=== PATIENT | female | born 1970 | race Caucasian/White ===

== ENCOUNTER 2016-08-15 07:40 | Observation (INO) | payer BC ==
[~2016-08-15 07:40] MED LIST: Buffered Lidocaine 0.9% SYRIN* 5 ML/SYR SYRINGE INTRADERM ONE; Famotidine IV* 10 MG/ML 2 ML (20 mg) IV ONE
[2016-08-15] MEDS ORDERED: Famotidine IV* 10 MG/ML 2 ML (20 mg) ONE ×2 (08:09→11:05)
[2016-08-15] MEDS ORDERED: ceFOXitin 2 GM IVPREMIX* 2 GM/50 ML BAG ONE (08:10)
[2016-08-15] MEDS ORDERED: Midazolam* 1 MG/ML 5 ML VIAL (5 MG) ONE (08:18)
[2016-08-15] MEDS ORDERED: fentaNYL* 50 MCG/ML 2 ML VIAL (100 MCG VIAL) ONE (08:18)
[2016-08-15] MEDS ORDERED: Ondansetron INJ* 2 MG/ML VIAL ONE (08:19)
[2016-08-15] MEDS ORDERED: Lidocaine 2% PF * 5 ML VIAL ONE (08:19)
[2016-08-15] MEDS ORDERED: Succinylcholine* 20 MG/ML 10 ML VIAL ONE (08:19)
[2016-08-15] MEDS ORDERED: Propofol* 10 MG/ML 20 ML BTL IV PUSH ONE (08:19)
[2016-08-15] MEDS ORDERED: Dexamethasone IV* 4 MG/ML 1 ML (4 MG) ONE (08:19)
[2016-08-15] MEDS ORDERED: Ketorolac INJ* 30 MG/ML 1 ML VIAL ONE (08:19)
[2016-08-15] MEDS ORDERED: DiMENhydriNATE IV* 50 MG/ML VIAL ONE (08:19)
[2016-08-15] MEDS ORDERED: Atracurium* 10 MG/ML 10 ML VIAL ONE (09:40)
[2016-08-15] MEDS ORDERED: HYDROmorphone* 1 MG/ML 1 ML SYR ONE ×2 (10:26→11:48)
[2016-08-15] MEDS ORDERED: Buffered Lidocaine 0.9% SYRIN* 5 ML/SYR SYRINGE ONE (11:05)
[2016-08-15] MEDS ORDERED: Ibuprofen TAB* 600 MG PO PRN (11:33)
[2016-08-15] MEDS ORDERED: Albuterol HFA INHALER* 8 gm MDI INH PRN (11:37)
[2016-08-15] MEDS ORDERED: oxyCODONE/Acetamin 5/325 MG* TAB PO PRN (11:48)
[2016-08-15] MEDS ORDERED: DiMENhydriNATE IV* 50 MG/ML VIAL IV PUSH PRN (11:48)
[2016-08-15] MEDS ORDERED: oxyCODONE/Acetamin 5/325 MG* TAB ONE (11:48)
[2016-08-15] MEDS: HYDROmorphone* 1 MG/ML 1 ML SYR IV PRN ×5 (11:55→12:29)
[2016-08-15] MEDS: oxyCODONE/Acetamin 5/325 MG* TAB PO PRN ×2 (15:52→20:08)
[2016-08-16] MEDS: oxyCODONE/Acetamin 5/325 MG* TAB PO PRN ×3 (00:03→09:12)
[2016-08-16 06:56] LABS: Hematocrit 36 % (35-47); Hemoglobin 11.7 g/dl (12.0-16.0); Mean Corpuscular HGB Conc 32 g/dl (31-36); Mean Corpuscular Hemoglobin 27 pg (27-31); Mean Corpuscular Volume 85 fL (80-97); Mean Platelet Volume 8 um3 (7.4-10.4); Red Blood Count 4.26 10^6/ul (4.0-5.4); Red Cell Distribution Width 14 % (10.5-15)
[2016-08-16] MEDS ORDERED: Docusate CAP* 100 MG PO ONE (07:45)
[2016-08-16] MEDS ORDERED: Bisacodyl EC TAB* 5 MG PO ONE (07:46)
[2016-08-16] MEDS ORDERED: Bisacodyl SUPP* 10 MG SUPP PR ONE (07:47)
[2016-08-16] MEDS ORDERED: FLUoxetine CAP* 10 MG PO SCH (09:00)
[2016-08-16 09:19] VITALS: BP 117/69
--- NOTE | 2016-08-23 07:50 | OP ---
CC: Dr. Jose A Griffin* DATE OF OPERATION: 08/15/16 - ROOM #352 DATE OF : 66 SURGEON: Colt Romeo MD SALES ENGINEER ACCOUNT MANAGER: Dr. Griffin ANESTHESIA: General anesthetic with endotracheal intubation. PRE-OPERATIVE DIAGNOSIS: Chronic pelvic pain. POST-OPERATIVE DIAGNOSIS: Chronic pelvic pain, pending pathology. OPERATIVE PROCEDURE: Laparoscopic supracervical hysterectomy and bilateral salpingectomy with a GelPOINT single incision device. ESTIMATED BLOOD LOSS: Minimal, less than 5 cc. SPECIMENS SENT TO PATHOLOGY: Bilateral fallopian tubes and uterus. IV FLUIDS: She received 1200 cc of IV crystalloid fluid. URINE OUTPUT: Clear. FINDINGS: Laparoscopically the patient was noted to have a normal bowel, normal bladder, normal uterus with evidence of a prior tubal ligation. COMPLICATIONS: There were no complications during this procedure. DESCRIPTION OF PROCEDURE: The patient was taken to the operating room where she was identified. She was placed in the operating table where a general anesthetic with endotracheal intubation was obtained without difficulty. She was then placed in the dorsal lithotomy position, prepped and draped in normal sterile fashion. Attention was then brought on to the patient's perineum where the bladder was cauterized with the Oconnell catheter and drained of clear urine. A speculum was inserted in the patient's vagina. The cervix was identified, grasped with single tooth tenaculum and through the cervix a ClearView uterine manipulator was introduced. The balloon and manipulator was inflated with 4 cc of normal saline. At this point, the speculum was removed from the patient's vagina and the manipulator of the uterus left in place. Attention was then brought on to the patient's abdomen where a 2-cm infraumbilical skin incision was made with the knife and carried through to the underlying layer of fascia. The fascia was then grasped with Jones clamps, brought up to incision, incised with the knife sharply and then entry into the peritoneum was then confirmed using a Sachi clamp and S-retractors. The Jones clamps on the fascia were then replaced with 0 Polysorb sutures. Through this incision, a GelPOINT device was introduced. The trocar on the GelPOINT were also introduced. The patient's abdomen was then insufflated with CO2 gas. A 10 mm scope was introduced through the trocar and survey of the patient's intraabdominal and pelvic anatomy was noted as above. At this point, we proceeded with our procedure. We first did a bilateral salpingectomy. The fallopian tubes were grasped at the fimbriated ends with a blunt grasper, they were then transected with electrocautery using a LigaSure device. The both fallopian tubes were then removed through the trocars and sent to pathology. We then procedure with our hysterectomy. The round ligaments were transected bilaterally with LigaSure cut. A window was then made in the anterior leaf of the broad ligament. The broad ligament was then incised inferiorly with the LigaSure device using dissection and cautery. A bladder flap was then created and the bladder was then mobilized from the lower uterine segment. The uterine arteries were identified bilaterally. These were then grasped with the LigaSure bilaterally at the junction of the cervix and the uterus. They were then cauterized and transected. At this point, the uterus was noted to be blanching from the blood supply. The utero-ovarian ligament was grasped with the LigaSure and was cauterized and transected bilaterally. The posterior leaf of the broad ligament was also incised and a window was made using blunt and sharp dissection using a LigaSure device. Once the uterus was freed, a Supra Loop was introduced. A trocar was introduced 4 cm above the symphysis pubis under direct visualization. A Supra Loop was then wrapped around the uterus at the uterine cervical junction and the uterus was then transected from the cervix using cautery. The Supra Loop was set at 100 pure cut. Prior to transecting the uterus, the uterine manipulator was removed. Once the uterus was then transected, it was placed in an Endobag and brought up to the umbilical incision. The uterus was then morcellated within the bag and sent to Pathology. The bag was then removed from the patient's abdomen. We then proceeded to take a second look with laparoscope. The pedicles from the surgical site were noted to be completely hemostatic. We proceeded to irrigate the patient's pelvis with normal saline and the normal saline was then suctioned. Hemostasis was noted. The suprapubic trocars was removed under direct visualization. There was no bleeding noted there and at this point, we then proceeded to remove all the trocars and the GelPOINT device from the patient's umbilicus. The fascia at the umbilicus was closed using 0 Polysorb suture in a running fashion and the umbilical incision was then closed using 4-0 subcuticular stitch with good approximation as well as the suprapubic incision was closed with a 4-0 subcuticular stitch. The patient tolerated the procedure well. Sponge, lap, needle counts were correct x2. She was then transferred to recovery room area in stable condition. [id number]/[facility] #: [id number] MTDD
== END 2016-08-16 10:00 | disposition home or self-care (01) ==
LOC: OR 07:40 → SSU 12:50
PROVIDERS: ADMIT Obstetrics & Gynecology; ATTEND Obstetrics & Gynecology
PROC: 0UT74ZZ Resection of Bilateral Fallopian Tubes, Percutaneous Endoscopic Approach (ICD-10-PCS; 2016-08-15)
PROC: 0UT94ZZ Resection of Uterus, Percutaneous Endoscopic Approach (ICD-10-PCS; principal; 2016-08-15 09:00)
DX: R10.2 Pelvic and perineal pain (principal); G89.29 Other chronic pain
CPT/HCPCS: 36415; 85025; 88305; 88307; 96374; A9270-GY; G0378; J0330; J0694; J1100; J1170; J1240; J1885; J2250; J2405; J2704; J3010

== ENCOUNTER 2018-03-07 12:05 | Emergency (ER) | payer BC, OTHER ==
[2018-03-07 12:43] VITALS: BP 150/86
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
== END 2018-03-07 14:39 | disposition home or self-care (01) ==
LOC: UCCORT 12:05
DX: S20.212A Contusion of left front wall of thorax, initial encounter (principal); S40.012A Contusion of left shoulder, initial encounter; V48.0XXA Car driver injured in noncollision transport accident in nontraffic accident, initial encounter; Y92.9 Unspecified place or not applicable; F41.9 Anxiety disorder, unspecified
CPT/HCPCS: 71046; 99211; G0463

== ENCOUNTER 2018-06-17 08:33 | Emergency (ER) | payer BC, OTHER ==
[2018-06-17] MEDS ORDERED: Aspirin 81 mg CHEW TAB* 81 MG TAB.CHEW PO ONE (08:42)
--- NOTE | 2018-06-17 08:54 | ED ---
HPI Chest Pain - HPI Summary HPI Summary: A 48 y/o female accompanied by her presents to [facility] with a chief complaint of intermittent CP for the past month. She reports that her CP is left sided and rates her pain as a 4/10 in severity. She describes her pain as tightness and reports that she gets this pain when having a panic attack or walking up steps. She claims that her panic attacks are due to stress. After walking up steps she also experiences SOB and lightheadedness. Since her CP was becoming more frequent, happening every few days, she saw her PCP, Dr. Morillo, and had an EKG done which reportedly showed ST depression. She has an appointment with Dr. Guevara tomorrow. She has a FHx of cardiac disease and NM. She notes that the last few times she had her BP checked it was high, but she is not taking any medications. She is a non-smoker, but reports that her parents smoked in the household when she was younger. 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 Negative: Fever - Allergy/Home Medications Allergies/Adverse Reactions: Allergies Allergy/AdvReac Type Severity Reaction Status Date / Time SEAFOOD Allergy Hives, AND Uncoded 03/07/18 12:43 N/V PMH/Surg Hx/FS Hx/Imm Hx Endocrine/Hematology History: Denies: Hx Diabetes, Hx Thyroid Disease Cardiovascular History: Denies: Hx Hypertension, Hx Pacemaker/ICD Respiratory History: Reports: Hx Asthma - prn inhaler Denies: Hx Chronic Obstructive Pulmonary Disease (COPD) GI History: Denies: Hx Ulcer History: Reports: Other Problems/Disorders - irregular periods Denies: Hx Renal Disease Musculoskeletal History: Reports: Hx Arthritis - left shoulder Sensory History: Reports: Hx Contacts or Glasses - contacts, will wear glasses day of surgery Denies: Hx Hearing Aid Opthamlomology History: Reports: Hx Contacts or Glasses - contacts, will wear glasses day of surgery Psychiatric History: Reports: Hx Anxiety - ON MED Denies: Hx Panic Disorder - Surgical History Surgery Procedure, Year, and Place[place] [facility] [place] [facility] [place]. [place] [facility] [place] Hx Anesthesia Reactions: No - Immunization History Date of Tetanus Vaccine: up to date per pt Infectious Disease History: No Infectious Disease History: Denies: Hx Clostridium Difficile, Hx Hepatitis, Hx Human Immunodeficiency Virus (HIV), Hx of Known/Suspected MRSA, Hx Shingles, Hx Tuberculosis, Hx Known/ Suspected VRE, Hx Known/Suspected VRSA, History Other Infectious Disease, Traveled Outside the [place] in Last 30 Days - Family History Known Family History: Positive: Cardiac Disease, Hypertension, Renal Disease - Social History Alcohol Use: Weekly Alcohol Amount: 4-5 GLASSES WINE PER WEEK Substance Use Type: Reports: None Smoking Status (MU): Never Smoked Tobacco Review of Systems Negative: Fever Positive: Chest Pain Positive: Shortness Of Breath Neurological: Other - positive: lightheadedness All Other Systems Reviewed And Are Negative: Yes Physical Exam - Summary Physical Exam Summary: Appearance: Well appearing, no pain distress Skin: warm, dry, reflects adequate perfusion Head/face: normal Eyes: EOMI, JACQUI ENT: normal Neck: supple, non-tender Respiratory: CTA, breath sounds present Cardiovascular: RRR, pulses symmetrical Abdomen: non-tender, soft Musculoskeletal: normal, strength/ROM intact Neuro: normal, sensory motor intact, A&Ox3 Triage Information Reviewed: Yes Vital Signs On Initial Exam: Initial Vitals Temp Pulse Resp BP Pulse Ox 97.2 F 74 18 160/89 98 06/17/18 08:34 06/17/18 08:34 06/17/18 08:34 06/17/18 08:34 06/17/18 08:34 Vital Signs Reviewed: Yes Diagnostics - Vital Signs Vital Signs Temp Pulse Resp BP Pulse Ox 06/17/18 08:34 97.2 F 74 18 160/89 98 - Laboratory Result Diagrams: 06/17/18 08:58 06/17/18 08:58 Lab Statement: Any lab studies that have been ordered have been reviewed, and results considered in the medical decision making process. - EKG 08:40 Cardiac Rate: NL - 73 bpm EKG Rhythm: Sinus Rhythm Summary of EKG Findings: NSR at 73 bpm, no acute changes. Re-Evaluation - Re-Evaluation First Eval Re-Evaluation Time: 11:09 Change: Unchanged Comment: Discussed results Second Eval Re-Evaluation Time: 13:13 Change: Unchanged Comment: Discussed results and plan for discharge. Chest Pain Course/Dx - Course Course Of Treatment: A 48 y/o female accompanied by her presents to [facility] with a chief complaint of intermittent CP for the past month. The physical exam was unremarkable. EKG showed NSR at 73 bpm, no acute changes. In the ED course the patient was given 324 mg Aspirin PO. Bloodwork and chemistries obtained. Consulted with Dr. Guevara, shipping and receiving coordinator. A stress test was done and was negative. The patient will be discharged home and follow up with her PCP. The patient is agreeable with this plan. - Chest Pain Differential Diagnosis/HQI/PQRI: Acute NM, ACS, Angina, Chest Wall - Diagnoses Provider Diagnoses: Chest pain, atypical - Provider Notifications Discussed Care Of Patient With: Jamel Guevara Time Discussed With Above Provider: 11:04 Instructed by Provider To: MD Will See In ED Discharge - Sign-Out/Discharge Documenting (check all that apply): Patient Departure - DC Patient Received Moderate/Deep Sedation with Procedure: No - Discharge Plan Condition: Stable Disposition: HOME Patient Education Materials: Chest Pain (DC) Referrals: Tere Morillo MD [Primary Care Provider] - 3 Days Additional Instructions: Return to the ED if you experience any new or worsening symptoms. - Billing Disposition and Condition Condition: STABLE Disposition: Home - Attestation Statements Document Initiated by Clarence: Yes Documenting Scribe: Matthew Cordova Provider For Whom Clarence is Documenting (Include Credential): Tapan Lam MD Scribe Attestation: Matthew Mc scribed for Tapan Lam MD on 06/17/18 at 1506. Scribe Documentation Reviewed: Yes Provider Attestation: The documentation as recorded by the Matthew garay accurately reflects the service I personally performed and the decisions made by me, Tapan Lam MD Status of Scribe Document: Viewed Consult Consult: At 13:10 - Discussed case with Dr. Guevara, who reports that the stress test was negative.
--- OUTSIDE RECORDS SUMMARY | 2018-06-17 08:57 | XMS REPORT | Continuity of Care Document ---
:1970 External Reference #:[id number] Author Name Tere Morillo M.D. Address [address] [place] [address] Care Team Providers Name Role Phone Tere Morillo Care Team Information Photolithographer Unavailable Tere Morillo Primary Care Physician Unavailable Payers Date Identification Numbers Payment Provider Subscriber Effective: 2008 Policy Number: [id number] [facility] Clare Toby Up PayID: [id number] [address] [place] [address] Advance Directives Description No Information Available Problems Active Problems Provider Date Mild persistent asthma Tere Morillo M.D. Onset: 04/03/2016 Overweight Tere Morillo M.D. Onset: 03/19/2013 Contact dermatitis due to plants, except Nelson Stanton M.D. Onset: 2011 food Intrinsic asthma without status asthmaticus Lin Mueller M.D. Onset: Degenerative joint disease involving Lin Mueller M.D. Onset: 08/13/2011 multiple joints Shoulder joint pain Lin Mueller M.D. Onset: 08/13/2011 Premenstrual tension syndrome Lin Mueller M.D. Onset: 11/17/2010 Family History Date Family Member(s) Observation Comments General Coronary Artery Disease (CAD) MGF, PFG, PGM. General No fam hx lung, colon, breast CA.No DM. Father age 59. due to Kidney failure. Genetic.- immunotactoid Glomerulopathy. first [place] age 50. bypass surgery 56 yo. Mother Obesity Mother Osteoarthritis Brendon. First Son starting [employer]. athletic. rows crew. Second Son athlete. First Brother bells palsy Second Brother healthy Social History Type Date Description Comments Sex Unknown Education Highest level of education completed is a 2 master's degrees, Psych, Animal Science and education. 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 Tobacco Use Start: Unknown Never Smoked Cigarettes Smoking Status Reviewed: 07/19/17 Never Smoked Cigarettes ETOH Use Occasional 4-5 glasses/wk Tobacco Use Start: Unknown Patient has never smoked Exercise Type/Frequency Exercises regularly. Current Can bike, upper body exercises, down hill skiing. jazzercise 3 times a week. Seat Belt/Car Seat Always uses a seat belt Guns in Home There are not guns in the home Smoke Alarms There are smoke alarms in the house Allergies, Adverse Reactions, Alerts Active Allergies Reaction Severity Comments Date NKDA 03/08/2011 Seafood 04/03/2016 TUNA anaphylactic 04/03/2016 Medications Active Medications SIG Qnty Indications Ordering Provider Date Proair HFA 2 puffs every 4 25.5gm Tere Ruiz 04/03/2016 108(90Base) hours as needed Vinnie Morillo mcg/Act Aerosol Fluoxetine HCL Take 1 Capsule 90caps N94.3 Libertad Olguin 08/04/2010 10mg Daily Walker, BRANCH DIRECTOR Capsules Advair Diskus 1 puff twice a 3units Libertad Olguin 02/28/2009 day Walker, BRANCH DIRECTOR 100-50mcg/Dose Aerosol Multi Vitamin daily Unknown Nasacort Allergy 24HR spray 2 sprays in Unknown each nostril at 55mcg/Act Aerosol bedtime History Medications Nystatin 5 milliliters 250ml Brissa 06/06/2017 - swish and spit ALEXANDRO Matamoros 07/19/2017 229649Kdoc/ML orally four times Suspension a day Augmentin 1 by mouth twice a 20tabs Joey Lugo 04/01/2017 - 500-125mg day with meals Vinnie Handy 06/05/2017 Tablets Fexofenadine HCL 1 by mouth a day 30tabs Tere Ruiz 10/21/2014 - 60mg Vinnie Morillo 07/19/2017 Tablets Needle Biopsy lump under r arm. 782.2 Tere Ruiz 10/21/2014 - Dr. Bobo Morillo M.D. 10/24/2015 Prednisone 1 by mouth every 4tabs 493.10 Tere Ruiz 06/01/2014 - 50mg day x 4 days Vinnie Morillo 10/21/2014 Tablets Nebulizer Set Up And use as directed. 1units 493.10 Tere Ruiz 06/01/2014 - Tubing Vinnie Morillo 10/21/2014 Nebulizer - Hand use as directed 1unmariano 493.10 Tere Ruiz 06/01/2014 - Held Portable Vinnie Morillo 06/01/2014 Ipratropium 1 vial via 30units 493.10 Tere Ruiz 06/01/2014 - Ford/Albuterol nebulizer qid prn Vinnie Morillo 10/21/2014 Sulfate coughing/ asthma exacerbation. 0.5-2.5(3)mg/3ML Solution Naproxen 1 po bid with food 60tabs 724.2 Alicia Grijalva NP 08/20/2013 - 500mg 08/30/2013 Tablets Orphenadrine Citrate 1 po bid prn for 20tabs 724.2 Alicia Grijalva NP 2013 - ER spasm 08/30/2013 100mg Tablets ER 12HR Ventolin HFA 2 puffs qd-qid 1unmariano Ruiz 02/27/2013 - Vinnie Morillo 05/31/2014 108(90Base) mcg/Act Aerosol Ventolin HFA 2 puffs qd-qid 3units Tere Ruiz 01/27/2013 - Vinnie Morillo 04/03/2016 108(90Base) mcg/Act Aerosol Immobilizer Boot achilles tendon 727.67 Tere Ruiz 08/29/2012 - partial rupture. Vinnie Morillo 05/31/2014 Ibuprofen 1 -2 po-qid with 120tabs 727.67 Tere Ruiz 08/29/2012 - 400mg food in stomach Vinnie Morillo 05/31/2014 Tablets Betamethasone apply sparingly 30gm Nelson Stanton, 11/08/2011 - Dipropionate bid-tid to rash M.D. 08/29/2012 0.05% prn Cream Ibuprofen 1 -2 po-qid with 90tabs 726.10 Tere Ruiz 03/08/2011 - 400mg food in stomach Vinnie Morillo 11/08/2011 Tablets Physical Therapy evaluate and treat 726.10 Tere Ruiz 03/08/2011 - Left shoulder pain Vinnie Morillo 08/13/2011 Ankle Sprain physical therapy, Lin Mueller, 09/20/2010 - assess and treat M.DJeffrey 03/08/2011 Prednisone 4 po x 2 days, 20tabs Nelson Stanton, 04/27/2009 - 10mg then 3 po x 2 M.DJeffrey 08/29/2012 Tablets days, then 2 po x 2 days,then 1 po x 2 day Ventolin HFA 2 puffs qd-qid 3units Lin Mueller, 02/28/2009 - M.D. 01/27/2013 108(90Base) mcg/ac Aerosol Nasonex 2 sample Family Medicine 02/28/2009 - 50mcg/Act sprays/nostril/day [facility] 08/29/2012 Suspension [place] Percocet Unknown - 11/08/2011 Fish Oil Unknown - Capsules 08/29/2012 Vitamin D Unknown - 08/29/2012 Medrol (Tomer) as directed Unknown - 4mg 10/21/2014 Tablets Azithromycin 2 by mouth today Unknown - 250mg and 1 tab x 4 days 10/21/2014 Tablets Tussionex 1 teaspoon every Unknown - Pennkinetic Extended 12 hours as needed 10/21/2014 Release cough 10-8mg/5ML Liquid ER Immunizations CPT Code Status Date Vaccine Lot # [id number] Given 11/05/2017 Influenza Vac, [place], [place] [id number] Given 12/01/2016 Influenza Vac, Quadrivalent, Slit Virus, Im [id number] 57737 Given 01/10/2016 Influenza Vac, [place]riv[place] [address] Given 12/09/2014 Influenza Vac, Quadrivalent, Slit Virus, Im [id number] 67770 Given 12/04/2013 DO Not Use Split Influenza Virus Vaccine [id number] 68713 Given 01/03/2013 DO Not Use Split Influenza Virus Vaccine [id number] 06807 Given 02/04/2012 DO Not Use Split Influenza Virus Vaccine [id number] 01270 Given 08/13/2011 Tdap Tetanus, W Pertussis [id number] 61073 Given 08/13/2011 Hep A & Hep B Adult, adult dosage, for [id number] intramuscular use 44670 Given 02/05/2011 Hep A & Hep B Adult, adult dosage, for [id number] intramuscular use 15744 Given 11/17/2010 DO Not Use Split Influenza Virus Vaccine [id number] 70863 Given 08/04/2010 Hep A & Hep B Adult, adult dosage, for [id number] intramuscular use 85507 Given 02/14/2009 H1N1 Virus Vaccine 55847 Given 12/08/2008 DO Not Use Split Influenza Virus Vaccine 47402 Given 02/06/2006 Tetanus And Diptheria Adult Preservative Free >7Yrs Vital Signs Date Vital Result Comment 05/27/2018 4:03pm BP Systolic 140 mmHg BP Diastolic 78 mmHg Heart Rate 74 /min Respiratory Rate 16 /min Height 66 inches 5'6" Weight 169.00 lb BMI (Body Mass Index) 27.3 kg/m2 07/19/2017 12:57pm BP Systolic 114 mmHg BP Diastolic 70 mmHg Heart Rate 72 /min Body Temperature 97.9 F Respiratory Rate 16 /min Height 66 inches 5'6" Weight 163.00 lb BMI (Body Mass Index) 26.3 kg/m2 06/06/2017 12:57pm BP Systolic 124 mmHg BP Diastolic 60 mmHg Heart Rate 96 /min Body Temperature 97.7 F Height 66 inches 5'6" Weight 163.00 lb BMI (Body Mass Index) 26.3 kg/m2 03/22/2017 8:58am BP Systolic 128 mmHg BP Diastolic 78 mmHg Heart Rate 94 /min Body Temperature 98.1 F Respiratory Rate 16 /min O2 % BldC Oximetry 98 % Height 66 inches 5'6" Weight 161.00 lb BMI (Body Mass Index) 26.0 kg/m2 04/03/2016 12:59pm BP Systolic 120 mmHg BP Diastolic 70 mmHg Heart Rate 68 /min Body Temperature 97.9 F Respiratory Rate 16 /min Height 66 inches 5'6" Weight 165.00 lb BMI (Body Mass Index) 26.6 kg/m2 10/24/2015 10:48am BP Systolic 120 mmHg BP Diastolic 80 mmHg Heart Rate 76 /min Body Temperature 98.1 F Respiratory Rate 18 /min Height 66 inches 5'6" Weight 158.00 lb BMI (Body Mass Index) 25.5 kg/m2 10/21/2014 11:03am BP Systolic 120 mmHg BP Diastolic 72 mmHg Heart Rate 62 /min Body Temperature 97.8 F Respiratory Rate 18 /min Height 66 inches 5'6" Weight 166.25 lb BMI (Body Mass Index) 26.8 kg/m2 06/01/2014 2:40pm BP Systolic 106 mmHg BP Diastolic 60 mmHg Heart Rate 83 /min Body Temperature 97.3 F Respiratory Rate 14 /min O2 % BldC Oximetry 96 % Height 66.25 inches 5'6.25" measured Weight 171.38 lb BMI (Body Mass Index) 27.4 kg/m2 08/20/2013 9:29am BP Systolic 110 mmHg BP Diastolic 68 mmHg Heart Rate 68 /min Body Temperature 97.5 F Respiratory Rate 18 /min Height 66.25 inches 5'6.25" measured Weight 159.00 lb BMI (Body Mass Index) 25.5 kg/m2 03/19/2013 10:54am BP Systolic 110 mmHg BP Diastolic 70 mmHg Heart Rate 66 /min Body Temperature 97.7 F Respiratory Rate 18 /min Height 66.25 inches 5'6.25" measured Weight 163.00 lb BMI (Body Mass Index) 26.1 kg/m2 09/03/2012 9:00am BP Systolic 110 mmHg BP Diastolic 68 mmHg Heart Rate 66 /min Body Temperature 97.4 F Respiratory Rate 18 /min Height 66.25 inches 5'6.25" measured Weight 157.00 lb BMI (Body Mass Index) 25.1 kg/m2 08/29/2012 3:25pm BP Systolic 100 mmHg BP Diastolic 70 mmHg Heart Rate 66 /min Body Temperature 98.5 F Respiratory Rate 15 /min Height 66.25 inches 5'6.25" measured Weight 155.00 lb BMI (Body Mass Index) 24.8 kg/m2 11/08/2011 10:14am BP Systolic 100 mmHg BP Diastolic 60 mmHg Heart Rate 64 /min Body Temperature 97.2 F Respiratory Rate 18 /min Height 66.25 inches 5'6.25" measured Weight 158.00 lb BMI (Body Mass Index) 25.3 kg/m2 08/13/2011 9:26am BP Systolic 118 mmHg BP Diastolic 78 mmHg Heart Rate 72 /min Body Temperature 98.0 F Height 66.25 inches 5'6.25" measured Weight 151.00 lb BMI (Body Mass Index) 24.2 kg/m2 04/12/2011 4:10pm BP Systolic 110 mmHg BP Diastolic 70 mmHg Heart Rate 60 /min Body Temperature 98.0 F Height 66.25 inches 5'6.25" measured Weight 168.00 lb BMI (Body Mass Index) 26.9 kg/m2 03/08/2011 9:52am BP Systolic 100 mmHg BP Diastolic 68 mmHg Heart Rate 76 /min Height 66.25 inches 5'6.25" measured Weight 163.00 lb BMI (Body Mass Index) 26.1 kg/m2 11/17/2010 8:20am BP Systolic 102 mmHg BP Diastolic 58 mmHg Heart Rate 76 /min Height 66.25 inches 5'6.25" measured Weight 154.00 lb BMI (Body Mass Index) 24.7 kg/m2 09/18/2010 10:58am BP Systolic 102 mmHg BP Diastolic 70 mmHg Heart Rate 72 /min Respiratory Rate 14 /min Height 66.25 inches 5'6.25" measured Weight 156.00 lb BMI (Body Mass Index) 25.0 kg/m2 08/04/2010 10:23am BP Systolic 102 mmHg BP Diastolic 60 mmHg Heart Rate 72 /min Body Temperature 98.5 F Height 66.25 inches 5'6.25" measured Weight 152.00 lb BMI (Body Mass Index) 24.3 kg/m2 04/27/2009 11:11am BP Systolic 112 mmHg BP Diastolic 70 mmHg Heart Rate 76 /min Body Temperature 98.1 F Respiratory Rate 16 /min O2 % BldC Oximetry 99 % Height 67 inches 5'7" Weight 154.00 lb BMI (Body Mass Index) 24.1 kg/m2 02/28/2009 9:09am BP Systolic 104 mmHg BP Diastolic 72 mmHg Heart Rate 72 /min Height 67 inches 5'7" Weight 151.00 lb BMI (Body Mass Index) 23.6 kg/m2 Results Test Date Facility Test Result H/L Range Note Laboratory test 07/26/2017 [facility] TSH 1.27 mIU/L 0.50-6.00 finding CBC Electronic Fma 07/26/2017 [facility] WBC 7.1 x10^3/UL 4.0-10.0 RBC 4.93 x10^6/UL 3.93-6.00 HGB 14.1 g/dL 12.0-17.0 HCT 42 % 35-50 MCV 85.6 fL 80.0-95.0 MCH 28.6 pg 25.6-32.2 MCHC 33.4 g/dL 32.2-36.0 RDW-CV 13.4 % 11.6-14.4 PLT 337 x10^3/UL 163-400 MPV 9.1 fL Low 9.4-12.4 1 Swathi# 4.82 x10^3/UL 1.56-6.13 Lymph# 1.44 x10^3/UL 1.18-3.74 Esmeralda# 0.44 x10^3/UL 0.24-0.82 Eos # 0.3 x10^3/UL 0.0-0.5 Baso # 0.05 x10^3/UL 0.01-0.08 Swathi% 67.9 % 34.0-70.0 Lymph % 20.3 % 20.0-52.0 Esmeralda% 6.2 % 5.0-12.0 Eos% 4.6 % 0.7-7.0 Baso% 0.7 % 0.1-1.2 Comprehensive Metabolic Prof 07/26/2017 [facility] Sodium 142 mEq/L 134-149 Potassium 4.7 mEq/L 3.6-5.5 Chloride 105 mEq/L 94-112 Carbon Dioxide 26 mEq/L 21-32 Glucose 108 mg/dL High 70-105 2 BUN 11 mg/dL 6-26 Creatinine 0.9 mg/dL 0.6-1.4 BUN/Creat Ratio 12.2 CALC 8.0-36.0 Calcium 8.9 mg/dL 8.6-10.2 Total Protein 6.6 g/dL 6.4-8.3 Albumin 4.3 g/dL 3.8-5.5 Globulin 2.3 g/dL 2.0-4.8 A/G Ratio 1.9 CALC 0.6-2.3 Alk. Phosphatase 87 U/L 30-110 Alt (SGPT) 16 U/L 7-35 Ast (Sgot) 22 U/L 5-34 Total Bilirubin 0.8 mg/dL 0.2-1.3 GFR Non- >60 ml/min/1.73m^ >=60 GFR >60 ml/min/1.73m^ >=60 Lipid Profile 07/26/2017 [facility] Cholesterol 156 mg/dL 120-200 Triglycerides 47 mg/dL 30-200 HDL Cholesterol 64 mg/dL 30-85 LDL (Calculated) 83 CALC 0-129 VLDL Cholesterol 9 mg/dL 0-50 HDL Risk Factor 2.4 CALC 0.0-4.4 Influenza A&B-fma 03/22/2017 [facility] Medicine Influenza A NEG (607)- - Influenza B NEG Laboratory test finding 08/13/2016 [facility] HCG < 0.60 mIU/mL N 3 CBC Auto Diff 08/13/2016 [facility] White Blood Count 8.7 10^3/uL N 3.5-10.8 Red Blood Count 4.81 10^6/uL N 4.0-5.4 Hemoglobin 13.2 g/dL N 12.0-16.0 Hematocrit 41 % N 35-47 Mean Corpuscular Volume 85 fL N 80-97 Mean Corpuscular Hemoglobin 27 pg N 27-31 Mean Corpuscular HGB Conc 32 g/dL N 31-36 Red Cell Distribution Width 14 % N 10.5-15 Platelet Count 322 10^3/uL N 150-450 Mean Platelet Volume 8 um3 N 7.4-10.4 Abs Neutrophils 5.9 10^3/uL N 1.5-7.7 Abs Lymphocytes 2.0 10^3/uL N 1.0-4.8 Abs Monocytes 0.4 10^3/uL N 0-0.8 Abs Eosinophils 0.2 10^3/uL N 0-0.6 Abs Basophils 0.1 10^3/uL N 0-0.2 Abs Nucleated RBC 0.01 10^3/uL N Granulocyte % 68.3 % N 38-83 Lymphocyte % 23.2 % Low 25-47 Monocyte % 4.8 % N 1-9 Eosinophil % 2.8 % N 0-6 Basophil % 0.9 % N 0-2 Nucleated Red Blood Cells % 0.1 N Abo/RH Type 08/13/2016 [facility] Patient Blood Type O Positive N Laboratory test finding 01/31/2016 [facility] Lactic Acid 0.7 mmol/L N 0.5-2.0 4 Urinalysis Profile 01/31/2016 [facility] Urine Color Yellow N Urine Appearance Clear N Urine Specific [place] > 1.060 High 1.010-1.030 Urine pH 7.0 N 5-9 Urine Urobilinogen Negative N Negative Urine Ketones Negative N Negative Urine Protein Negative N Negative Urine Leukocytes Negative N Negative Urine Blood Negative N Negative Urine Nitrite Negative N Negative Urine Bilirubin Negative N Negative Urine Glucose Negative N Negative Comp Metabolic Panel 01/31/2016 [facility] Sodium 135 mmol/L N 133-145 Potassium 3.9 mmol/L N 3.5-5.0 Chloride 103 mmol/L N 101-111 Co2 Carbon Dioxide 26 mmol/L N 22-32 Anion Gap 6 mmol/L N 2-11 Glucose 110 mg/dL High 70-100 Blood Urea Nitrogen 10 mg/dL N 6-24 Creatinine 1.02 mg/dL High 0.51-0.95 BUN/Creatinine Ratio 9.8 N 8-20 Calcium 9.4 mg/dL N 8.6-10.3 Total Protein 7.6 g/dL N 6.4-8.9 Albumin 4.4 g/dL N 3.2-5.2 Globulin 3.2 g/dL N 2-4 Albumin/Globulin Ratio 1.4 N 1-3 Total Bilirubin 0.80 mg/dL N 0.2-1.0 Alkaline Phosphatase 95 U/L N 34-104 Alt 15 U/L N 7-52 Ast 21 U/L N 13-39 Egfr Non- 58.1 N >60 Egfr 74.7 N >60 5 Laboratory test finding 01/31/2016 [facility] Magnesium 2.1 mg/dL N 1.9-2.7 Lipase 13 U/L N 11.0-82.0 C Reactive Protein 2.91 mg/L N < 5.00 6 Lactic Acid 1.4 mmol/L N 0.5-2.0 7 CBC Auto Diff 01/31/2016 [facility] White Blood Count 11.2 10^3/uL High 3.5- 10.8 Red Blood Count 5.08 10^6/uL N 4.0-5.4 Hemoglobin 14.3 g/dL N 12.0-16.0 Hematocrit 44 % N 35-47 Mean Corpuscular Volume 86 fL N 80-97 Mean Corpuscular Hemoglobin 28 pg N 27-31 Mean Corpuscular HGB Conc 33 g/dL N 31-36 Red Cell Distribution Width 14 % N 10.5-15 Platelet Count 391 10^3/uL N 150-450 Mean Platelet Volume 8 um3 N 7.4-10.4 Abs Neutrophils 7.3 10^3/uL N 1.5-7.7 Abs Lymphocytes 2.7 10^3/uL N 1.0-4.8 Abs Monocytes 0.6 10^3/uL N 0-0.8 Abs Eosinophils 0.5 10^3/uL N 0-0.6 Abs Basophils 0.1 10^3/uL N 0-0.2 Abs Nucleated RBC 0.01 10^3/uL N Granulocyte % 65.0 % N 38-83 Lymphocyte % 23.8 % Low 25-47 Monocyte % 5.5 % N 1-9 Eosinophil % 4.8 % N 0-6 Basophil % 0.9 % N 0-2 Nucleated Red Blood Cells % 0.1 N CBC Auto Diff 10/16/2015 [facility] White Blood Count 9.3 10^3/uL N 3.5-10.8 Red Blood Count 4.65 10^6/uL N 4.0-5.4 Hemoglobin 13.2 g/dL N 12.0-16.0 Hematocrit 40 % N 35-47 Mean Corpuscular Volume 86 fL N 80-97 Mean Corpuscular Hemoglobin 28 pg N 27-31 Mean Corpuscular HGB Conc 33 g/dL N 31-36 Red Cell Distribution Width 13 % N 10.5-15 Platelet Count 328 10^3/uL N 150-450 Mean Platelet Volume 8 um3 N 7.4-10.4 Abs Neutrophils 6.5 10^3/uL N 1.5-7.7 Abs Lymphocytes 1.9 10^3/uL N 1.0-4.8 Abs Monocytes 0.3 10^3/uL N 0-0.8 Abs Eosinophils 0.4 10^3/uL N 0-0.6 Abs Basophils 0.2 10^3/uL N 0-0.2 Abs Nucleated RBC 0 10^3/uL N Granulocyte % 70.3 % N 38-83 Lymphocyte % 20.1 % Low 25-47 Monocyte % 3.4 % N 1-9 Eosinophil % 3.9 % N 0-6 Basophil % 2.3 % High 0-2 Nucleated Red Blood Cells % 0 N Laboratory test finding 10/16/2015 [facility] Lipase 15 U/L N 11.0-82.0 C Reactive Protein 2.97 mg/L N < 5.00 8 HCG < 0.60 mIU/mL N 9 Urinalysis Profile 10/16/2015 [facility] Urine Color Yellow N Urine Appearance Clear N Urine Specific [place] 1.012 N 1.010-1.030 Urine pH 8.0 N 5-9 Urine Urobilinogen Negative N Negative Urine Ketones Negative N Negative Urine Protein Negative N Negative Urine Leukocytes Negative N Negative Urine Blood Negative N Negative Urine Nitrite Negative N Negative Urine Bilirubin Negative N Negative Urine Glucose Negative N Negative Inr/Protime 10/16/2015 [facility] Inr 1.09 N 0.89-1.11 Comp Metabolic Panel 10/16/2015 [facility] Sodium 136 mmol/L N 133-145 Potassium 3.7 mmol/L N 3.5-5.0 Chloride 104 mmol/L N 101-111 Co2 Carbon Dioxide 25 mmol/L N 22-32 Anion Gap 7 mmol/L N 2-11 Glucose 109 mg/dL High 70-100 Blood Urea Nitrogen 15 mg/dL N 6-24 Creatinine 0.94 mg/dL N 0.51-0.95 BUN/Creatinine Ratio 16.0 N 8-20 Calcium 8.8 mg/dL N 8.6-10.3 Total Protein 6.6 g/dL N 6.4-8.9 Albumin 3.7 g/dL N 3.2-5.2 Globulin 2.9 g/dL N 2-4 Albumin/Globulin Ratio 1.3 N 1-3 Total Bilirubin 0.60 mg/dL N 0.2-1.0 Alkaline Phosphatase 88 U/L N 34-104 Alt 13 U/L N 7-52 Ast 19 U/L N 13-39 Egfr Non- 63.8 N >60 Egfr 82.1 N >60 10 Laboratory test finding 10/16/2015 [facility] Partial Thrombo Time 28.5 seconds N 26.0-36.3 PTT Lactic Acid 1.4 mmol/L N 0.5-2.0 11 Laboratory test 11/11/2014 [facility] Thyroxine (T4) 0.98 ng/dL 0.82-1.77 finding [address] [facility], [address] [place] [address] (607)- - TSH 1.590 uIU/mL 0.450-4.500 Vitamin D, 25-Hydroxy 38.6 ng/mL 30.0-100.0 12 Lipid Panel 11/11/2014 [facility] Cholesterol, Total 153 mg/dL [phone] [place] [address] (607)- - Triglycerides 71 mg/dL 0-149 HDL Cholesterol 55 mg/dL >39 13 VLDL Cholesterol Mike 14 mg/dL 5-40 LDL Cholesterol Calc 84 mg/dL 0-99 Comment: DNR Comp. Metabolic 11/11/2014 [facility] Glucose, Serum 94 mg/dL 65-99 Panel (14) [address] [place] [address] (606)- - BUN 13 mg/dL 6-24 Creatinine, Serum 0.93 mg/dL 0.57-1.00 eGFR If NonAfricn Am 74 mL/min/1.73 >59 eGFR If Africn Am 85 mL/min/1.73 >59 BUN/Creatinine Ratio 14 9-23 Sodium, Serum 140 mmol/L 134-144 Potassium, Serum 4.5 mmol/L 3.5-5.2 Chloride, Serum 102 mmol/L 97-108 Carbon Dioxide, Total 26 mmol/L 18-29 Calcium, Serum 9.0 mg/dL 8.7-10.2 Protein, Total, Serum 6.5 g/dL 6.0-8.5 Albumin, Serum 3.9 g/dL 3.5-5.5 Globulin, Total 2.6 g/dL 1.5-4.5 A/G Ratio 1.5 1.1-2.5 Bilirubin, Total 0.5 mg/dL 0.0-1.2 Alkaline Phosphatase, S 92 IU/L 39-117 Ast (Sgot) 23 IU/L 0-40 Alt (SGPT) 13 IU/L 0-32 CBC With 11/11/2014 [facility] WBC 7.3 x10E3/uL 3.4-10.8 Differential/Platelet [address] [place] [address] (607)- - RBC 4.66 x10E6/uL 3.77-5.28 Hemoglobin 13.6 g/dL 11.1-15.9 Hematocrit 40.7 % 34.0-46.6 MCV 87 fL 79-97 MCH 29.2 pg 26.6-33.0 MCHC 33.4 g/dL 31.5-35.7 RDW 13.5 % 12.3-15.4 Platelets 333 x10E3/uL 150-379 Neutrophils 67 % Lymphs 23 % Monocytes 5 % Eos 5 % Basos 0 % Immature Cells DNR Neutrophils (Absolute) 4.9 x10E3/uL 1.4-7.0 Lymphs (Absolute) 1.7 x10E3/uL 0.7-3.1 Monocytes(Absolute) 0.4 x10E3/uL 0.1-0.9 Eos (Absolute) 0.3 x10E3/uL 0.0-0.4 Baso (Absolute) 0.0 x10E3/uL 0.0-0.2 Immature Granulocytes 0 % Immature Grans (Abs) 0.0 x10E3/uL 0.0-0.1 NRBC DNR Hematology Comments: DNR Laboratory test 10/26/2014 [facility] Non-Supervisor Type Photography Interface SEE RESULT 14 finding Order BELOW Ua - Non Micro 10/21/2014 [facility] Appearance CLEAR (Fma) (607)- - Color YELLOW Glucose, Urine (Fma/CMC/CTX) NEG Bilirubin NEG Ketones NEG SP Grav 1.010 Blood NEG PH 6.0 Protein NEG Urobil 0.2 Nitrite NEG Leukocytes (a/[facility]) NEG Basic Metabolic Panel 03/01/2014 [facility] Sodium 137 mmol/L N 133-145 15 Potassium 4.3 mmol/L N 3.5-5.0 Chloride 105 mmol/L N 101-111 Co2 Carbon Dioxide 28 mmol/L N 22-32 Anion Gap 4 mmol/L N 2-11 Glucose 87 mg/dL N 70-100 Blood Urea Nitrogen 11 mg/dL N 6-24 Creatinine 0.80 mg/dL N 0.51-0.95 BUN/Creatinine Ratio 13.8 N 8-20 Calcium 9.0 mg/dL N 8.6-10.3 Egfr Non- 77.2 N >60 Egfr 99.3 N >60 16 Total Protein 24HR Urine 03/01/2014 [facility] Urine Random Total Protein < 6 mg/ dL N 17 Urine Total Protein/24HR TNP mg/24Hr N 0-165 18 Urine Collection Time 24 N Urine Total Volume 2100 mL N Creatinine Clearance 03/01/2014 [facility] Urine Random Creatinine 77.29 mg/dL N Creatinine 0.81 mg/dL N 0.51-0.95 Creatinine Clearance 139 mL/min High 88-128 Urine Collection Time 24 N Urine Total Volume 2100 mL N Urinalysis Profile 12/14/2013 [facility] Urine Color Red N Urine Appearance Cloudy N Urine Specific [place] 1.012 N 1.010-1.030 Urine pH (SEE NOTE) N 5-9 19 Urine Urobilinogen (SEE NOTE) N Negative 20 Urine Ketones (SEE NOTE) N Negative 21 Urine Protein (SEE NOTE) N Negative 22 Urine Leukocytes (SEE NOTE) N Negative 23 Urine Blood (SEE NOTE) N Negative 24 * (SEE NOTE) N Negative 25 Urine Nitrite (SEE NOTE) N Negative 26 Urine Bilirubin (SEE NOTE) N Negative 27 Urine Glucose (SEE NOTE) N Negative 28 Urine White Blood Cell Trace(0-5/hpf) N Absent Urine Red Blood Cell 3+(>10/hpf) Abnormal Absent Urine Bacteria Absent N Absent Ua - Micro (Fma) 03/19/2013 [facility] Medicine Appearance clear (607)- - Color yellow Glucose - Bilirubin - Ketones - SP Grav 1.020 Blood small # PH 6.0 Protein - Urobil 0.2 Nitrite - Leukocytes (Fma/CMC/[facility]) - Hyaline - /Lpf Granular - /Lpf WBC (Fma,[facility]) 0-1 RBC 2-3 Mucus - /Lpf Epith rare /Lpf Bacteria rare /Hpf Amorphous - /Lpf Crystals, Fluid (Fma/CMC/CTX) - Basic Metabolic Panel 03/19/2013 [facility] Glucose 98 mg/dL 70-100 [address] [place] [address] [phone] BUN 10 mg/dL 4-18 Creatinine, Serum 0.96 mg/dL 0.50-1.10 Sodium 140 mmol/L 136-146 Potassium 4.5 mmol/L 3.5-5.3 Chloride 106 mmol/L 98-110 Carbon Dioxide 29 mmol/L 20-32 Calcium 9.3 mg/dL 8.4-10.4 Egfr (Calculated) 03/19/2013 [facility] Estimated GFR (CALCULATED) [address] [place] [address] [phone] Egfr >60 29 Egfr, -[place] >60 30 [place] Shellfish 04/12/2011 [facility] Class Description SEE NOTE 31 Panel [address] [place] [phone] [id number] Crab <0.08 kU/L Class 0 [id number] Shrimp <0.08 kU/L Class 0 [id number] Mussel <0.08 kU/L Class 0 [id number] Lobster <0.08 kU/L Class 0 [id number] Clam <0.08 kU/L Class 0 [id number] Oyster 0.23 kU/L Abnormal Class II Basic Metabolic Panel 08/04/2010 [facility] Glucose 97 mg/dL 70-100 32 [address] [place] [address] [phone] BUN 13 mg/dL 4-18 Creatinine, Serum 0.94 mg/dL 0.50-1.10 Sodium 139 mmol/L 136-146 Potassium 4.2 mmol/L 3.5-5.3 Chloride 104 mmol/L 98-110 Carbon Dioxide 31 mmol/L 20-32 Calcium 9.3 mg/dL 8.4-10.4 Egfr (Calculated) 08/04/2010 [facility] Estimated GFR (CALCULATED) [address] [place] [address] [phone] Egfr >60 33 Egfr, -Guinean >60 34 Ua - Micro (Fma) 08/04/2010 Family [facility] Appearance clear (607)- - Color yellow Glucose - Bilirubin - Ketones - SP Grav 1.015 Blood trace # PH 7.5 Protein - Urobil 0.2 Nitrite - Hyaline - /Lpf Granular - /Lpf WBC (Fma,[facility]) 0-1 RBC 1-4 Mucus - /Lpf Epith occ /Lpf Bacteria trace /Hpf Amorphous - /Lpf Crystals, Fluid (Fma/CMC/CTX) - GFR Calculated 02/28/2009 [facility] GFR (Calculated) >60 35, 36 [address] [place] [address] [phone] Basic Metabolic 02/28/2009 [facility] Glucose 97 mg/dL 70-10 Panel [address] [address] [phone] BUN 15 mg/dL 4-18 Creatinine, Serum 0.87 mg/dL 0.50-1.10 Sodium 139 mmol/L 136-146 Potassium 4.7 mmol/L 3.5-5.3 Chloride 106 mmol/L 98-110 Carbon Dioxide 27 mmol/L 20-32 Calcium 9.0 mg/dL 8.4-10.4 Lipid Panel 02/28/2009 [facility] Cholesterol, Total 167 mg/dL <200 [address] [place] [address] [phone] Triglycerides 56 mg/dL <150 HDL Cholesterol 64 mg/dL High 40-60 Chol/HDL Cholesterol 2.6 37 LDL Cholesterol, Calc. 92 mg/dL 38 LDL/HDL Cholesterol 1.4 39 Vitamin D 25 02/28/2009 [facility] Vitamin D, 36.3 ng/mL 32.0-100.0 40 Hydroxy 28 [facility] 25[place] [address] [phone] RESULTS VERIFIED BY REPEAT ANALYSIS 2 UNABLE TO PERFORM TEST DUE TO INADEQUATE SPECIMEN 3 <5.0 Negative 5.0 - 25.0 Indeterminate (Repeat testing recommended after 72 hours) >25.0 Positive Perimenopausal women can display HCG levels of up to 20 mIU/mL 4 [facility] Severe Sepsis and Septic Shock Management Bundle Measure requires all lactic acids initially measuring >2.0 mmol/L be repeated. 5 Because ethnic data is not always readily available, this report includes an eGFR for both -Americans and non- Americans. The National Kidney Disease Education Program (NKDEP) does not endorse the use of the MDRD equation for patients that are not between the ages of 18 and 70, are , have extremes of body size, muscle mass, or nutritional status, or are non- or non-. According to the National Kidney Foundation, irrespective of diagnosis, the stage of the disease is based on the level of kidney function: Stage Description GFR(mL/min/1.73 m(2)) 1 Kidney damage with normal or decreased GFR 90 2 Kidney damage with mild decrease in GFR 60-89 3 Moderate decrease in GFR 30-59 4 Severe decrease in GFR 15-29 5 Kidney failure <15 (or dialysis) 6 Acute inflammation: >10.00 7 [facility] Severe Sepsis and Septic Shock Management Bundle Measure requires all lactic acids initially measuring >2.0 mmol/L be repeated. 8 Acute inflammation: >10.00 9 <5.0 Negative 5.0 - 25.0 Indeterminate (Repeat testing recommended after 72 hours) >25.0 Positive Perimenopausal women can display HCG levels of up to 20 mIU/mL 10 Because ethnic data is not always readily available, this report includes an eGFR for both -Americans and non- Americans. The National Kidney Disease Education Program (NKDEP) does not endorse the use of the MDRD equation for patients that are not between the ages of 18 and 70, are , have extremes of body size, muscle mass, or nutritional status, or are non- or non-. According to the National Kidney Foundation, irrespective of diagnosis, the stage of the disease is based on the level of kidney function: Stage Description GFR(mL/min/1.73 m(2)) 1 Kidney damage with normal or decreased GFR 90 2 Kidney damage with mild decrease in GFR 60-89 3 Moderate decrease in GFR 30-59 4 Severe decrease in GFR 15-29 5 Kidney failure <15 (or dialysis) 11 [facility] Severe Sepsis and Septic Shock Management Bundle Measure requires all lactic acids initially measuring >2.0 mmol/L be repeated. 12 Vitamin D deficiency has been defined by the [place] of [employer] and an Endocrine Society practice guideline as a level of serum 25-OH vitamin D less than 20 ng/mL (1,2). The Endocrine Society went on to further define vitamin D insufficiency as a level between 21 and 29 ng/mL (2). 1. IOM ([place] of Medicine). 2010. Dietary reference intakes for calcium and D. [place]: The National Academies Press. 2. Lluvia PARK, [place] GODFREY, John MUSE, et al. Evaluation, treatment, and prevention of vitamin D deficiency: an Endocrine Society clinical practice guideline. JCEM. 2010; 96(7):1911-30. 13 According to ATP-III Guidelines, HDL-C >59 mg/dL is considered a negative risk factor for CHD. 14 SEE RESULT BELOW Name: RON UP : [address]: Tere Morillo MD Acct: [id number] Unit: [id number] AGE: 44 Location: LAB Re10/26/14 SEX: F Status: REG REF SPEC: [id number] LETICIA: 10/26/14-1430 [facility] DR: Edmar Broussard MD REQ: [id number] RECD: 10/26/14 STATUS: MICHELL ANDERSON DR: Tere Morillo MD _ ORDERED: FN ASP SUPERFIC, FN ASP PALP, FNA IMMEDIATE S, PATH CONSULT FINAL DIAGNOSIS Right upper arm fine needle aspiration by palpation: Benign- angiolipoma. The aspirate smear demonstrates mature adipose tissue with increased vasculature with scattered small vessels demonstrating plump endothelial cells. A few mast cells and lipofuscin phages are seen in the background. These findings are characteristic of a benign angiolipoma and are compatible with the physical exam and clinical presentation. No evidence of a malignancy is identified. The procedure was explained to and understood by the patient. Signed consent was obtained and a time out procedure was performed at the bedside to verify patient identity and biopsy site. Fine needle aspiration biopsy was performed times 1 with a 25 gauge needle on 1 cm soft subcutaneous left upper arm nodular mass.. Adequacy was assessed by fast stain technique. The procedure was tolerated well without complications. Arm NEC - RIGHT UPPER FINE NEEDLE ASPIRATION BY PALPATION CONTINUED ON NEXT PAGE * ML=Testing performed at Main Lab DEPARTMENT OF PATHOLOGY, [address] [place] [address] Edmar Broussard M.D. Director STELLA # [id number] RUN DATE: 10/28/14 [facility] LAB LIVE PAGE 2 Patient: RON UP [id number] (Continued) CLINICAL HISTORY (Continued) CLINICAL HISTORY Lump right upper arm,1 cm soft mobile nodule IMMEDIATE INTERPRETATION Pass 1-adequate GROSS DESCRIPTION Fine needle aspiration by palpation. 1 alcohol fixed slide Signed (signature on file) Edmar Broussard MD 1502 END OF REPORT * ML=Testing performed at Main Lab DEPARTMENT OF PATHOLOGY, [address] [place] [address] Edmar Broussard M.D. Director STELLA # [id number] 15 24 HR COLLECTED 02/28/14 @ 0630AM TO 03/01/14 @ 0630 16 Because ethnic data is not always readily available, this report includes an eGFR for both -Americans and non- Americans. The National Kidney Disease Education Program (NKDEP) does not endorse the use of the MDRD equation for patients that are not between the ages of 18 and 70, are , have extremes of body size, muscle mass, or nutritional status, or are non- or non-. According to the National Kidney Foundation, irrespective of diagnosis, the stage of the disease is based on the level of kidney function: Stage Description GFR(mL/min/1.73 m(2)) 1 Kidney damage with normal or decreased GFR 90 2 Kidney damage with mild decrease in GFR 60-89 3 Moderate decrease in GFR 30-59 4 Severe decrease in GFR 15-29 5 Kidney failure <15 (or dialysis) 17 UNABLE TO CALCULATE 24HR URINE DUE TO LOW TOTAL PROTIEN --- 03/01/14 1442 --- T Protein UR previously reported as: < 6 mg/dL 18 Unable to calculate due to insufficient protein 19 Unable to evaluate urinalysis dipstick results due to interfering color. 20 Unable to evaluate urinalysis dipstick results due to interfering color. 21 Unable to evaluate urinalysis dipstick results due to interfering color. 22 Unable to evaluate urinalysis dipstick results due to interfering color. 23 Unable to evaluate urinalysis dipstick results due to interfering color. 24 Unable to evaluate urinalysis dipstick results due to interfering color. 25 Unable to evaluate urinalysis dipstick results due to interfering color. 26 Unable to evaluate urinalysis dipstick results due to interfering color. 27 Unable to evaluate urinalysis dipstick results due to interfering color. 28 Unable to evaluate urinalysis dipstick results due to interfering color. 29 >59 mL/min/1.73m2 30 >59 mL/min/1.73m2 Note: Persistent reduction for 3 months or more in an eGFR <60 mL/min/1.73m2 defines CKD. Patients with eGFR values >=60 mL/min/1.73m2 may also have CKD if evidence of persistent proteinuria is present. Additional information may be found at www.kidney.org/professionals/kdoqi. 31 Levels of Specific IgE Class Description of Class ----- <0.08 0 Negative 0.08 - 0.15 I 0.16 - 0.50 II Increasing 0.51 - 2.50 III levels 2.51 - 12.50 IV of 12.51 - 62.50 V Specific IgE 62.51 - >100.00 Antibody 32 FASTING 33 >59 mL/min/1.73m2 34 >59 mL/min/1.73m2 Note: Persistent reduction for 3 months or more in an eGFR <60 mL/min/1.73m2 defines CKD. Patients with eGFR values >=60 mL/min/1.73m2 may also have CKD if evidence of persistent proteinuria is present. Additional information may be found at www.kidney.org/professionals/kdoqi. 35 FASTING; 2 SST 36 mL/min/1.73m2 . Normal Function or Mild Renal Disease, if clinically at risk: >or=60 Moderately decreased: 30 - 59 Severely decreased: 15 - 29 Renal Failure: <15 . Please note that the MDRD equation requires an additional adjustment for -Americans (multiply the GFR result by 1.210). . Glomerular Filtration Rate (GFR) is estimated based on the MDRD equation, which assumes a steady state for creatinine ([place] Int Med 139/2 137-149, 2003), as recommended by the National Kidney Disease Education Program in conjunction with the National Institutes of Health and the National Kidney Foundation. . Clinical conditions in which it may be necessary to measure GFR by using clearance methods include extremes of age and body size, severe malnutrition or obesity, diseases of skeletal muscle, paraplegia or quadriplegia, vegetarian diet, rapidly changing kidney function, and calculation of the dose of potentially toxic drugs that are excreted by the kidneys. 37 CHOL/HDL Risk Ratio Levels MALE FEMALE 1/2 X Average 3.4 3.3 Average 5.0 4.4 2 X Average 9.5 7.0 3 X Average 24.0 11.0 38 Optimal under 100 mg/dl Near or above Optimal 100 - 129 mg/dl Borderline High 130 - 159 mg/dl High 160 - 189 mg/dl Very High above 190 mg/dl 39 LDL/HDL Risk Ratio Levels MALE FEMALE 1/2 X Average 1.0 1.5 Average 3.6 3.2 2 X Average 6.3 5.0 3 X Average 8.0 6.1 40 Recent studies consider the lower limit of 32.0 ng/mL to be a threshold for optimal health. Shai NOBLE. J Nutr. 2004;135(2):317-22. Procedures Date Code Description Status 05/27/2018 90219 Electrocardiogram Complete Completed 05/17/2017 [id number] Mammogram Completed 03/22/2017 82640 Pulse Oximetry Completed 05/16/2016 [id number] Mammogram Completed 04/17/2016 [id number] Colonoscopy Completed 05/02/2015 [id number] Mammogram Completed 06/01/2014 79421 Pulse Oximetry Completed 06/01/2014 83043 Nebulizer Treatment Completed 04/17/2013 [id number] Mammogram Completed 02/09/2011 [id number] Mammogram Completed 02/03/2010 [id number] Mammogram Completed 04/27/2009 14976 Pulse Oximetry Completed Encounters Type Date Location Provider Dx Diagnosis Office Visit 07/19/2017 [facility] Office Tere Ruiz Z00.00 Encntr for general 1:00p Vinnie Morillo adult medical exam w/o abnormal findings J45.30 Mild persistent asthma, uncomplicated E66.3 Overweight Office Visit 06/06/2017 1:00p [facility] Brissa K13.79 Other lesions Shiloh, SENIOR LOGISTICS MANAGER of oral mucosa B37.0 Candidal stomatitis Office Visit 03/22/2017 9:00a [facility] Fatoumata Gay J06.9 Acute upper Parth, BRANCH DIRECTOR respiratory infection, unspecified Office Visit 04/03/2016 1:00p [facility] Office Tere Ruiz Z00.00 Encntr betzaida Morillo M.D. general adult medical exam w/o abnormal findings J45.30 Mild persistent asthma, uncomplicated F32.81 Premenstrual dysphoric disorder Office Visit 10/24/2015 10:40a [facility] Office Tere Morillo K30 Functional dyspepsia Vinnie M77.9 Enthesopathy, unspecified Office Visit 10/21/2014 10:40a [facility] Tere Ruiz V70.0 Examination Vinnie Morillo General Medical Routine AT Health Care Facility 599.72 Microscopic Hematuria 726.90 Enthesopathy Unspec Site 782.2 Swelling Mass Or Lump Localized Superfical 268.9 Vitamin D Deficiency Unspec 278.02 Overweight 493.10 Asthma Intrinsic Unspecified Office Visit 06/01/2014 2:40p [facility] Office Tere Ruiz 493.10 Asthma Intrinsic Vinnie Morillo Unspecified 268.9 Vitamin D Deficiency Unspec Office Visit 08/20/2013 9:30a [facility] Office Alicia Grijalva, 724.2 Lumbago BRANCH DIRECTOR Office Visit 03/19/2013 10:40a [facility] Office Tere Ruiz V70.0 Examination Vinnie Morillo General Medical Routine AT Health Care Facility 493.10 Asthma Intrinsic Unspecified 625.4 Premenstrual Tension Syndromes 278.02 Overweight 599.72 Microscopic Hematuria Office Visit 09/03/2012 [facility] Brissa V70.3 Examination Other 9:00a Office ALEXANDRO [facility] Office Visit 08/29/2012 [facility] Tere Ruiz 727.67 Ruptured Tendon 3:10p Office Vinnie Morillo Achilles Office Visit 11/08/2011 [facility] Nelson Stanton, 692.6 Dermatitis Contact 10:10a Office Vinnie Due To Plants (Except Food) Office Visit 08/13/2011 Ward Harris V70.0 Examination General 9:10a Office Vinnie Mueller Medical Routine AT Health Care Facility 719.41 Pain Joint Shoulder Region 715.00 Osteoarthrosis Generalized Site Unspec 625.4 Premenstrual Tension Syndromes 493.10 Asthma Intrinsic Unspecified v05.8 Single Disease Spec Other Vaccination & Inoculation v06.5 Tetanus Diphtheria (DT) Office Visit 04/12/2011 3:10p [facility] Office Tere Ruiz 726.10 Bursae & Tendon Vinnie Morillo Disorders Shoulder Region Unspec Office Visit 03/08/2011 9:40a [facility] Office Tere Ruiz 726.10 Bursae & Tendon Vinnie Morillo Disorders Shoulder Region Unspec Office Visit 11/17/2010 8:20a [facility] Office Lin Harris 625.4 Premenstrual Vinnie Mueller Tension Syndromes v04.81 Need For Prophylactic Vaccination & Inoculation/Influenza Office Visit 09/18/2010 10:40a [facility] Office Lin Harris 845.00 Sprains & Strains Vinnie Mueller Ankle Unspec Site Office Visit 08/04/2010 10:00a [facility] Office Lin Harris V70.0 Examination Vinnie Mueller General Medical Routine AT Health Care Facility 625.4 Premenstrual Tension Syndromes 493.10 Asthma Intrinsic Unspecified 995.3 Allergy Unspec V18.69 History Family Kidney Diseases Spec Other v05.3 Viral Hepatitis Vaccination & Inoculation 599.72 Microscopic Hematuria Office Visit 04/27/2009 11:20a [facility] Crispin Acosta 493.10 Asthma Intrinsic Vinnie Cerna Unspecified Office Visit 02/28/2009 9:00a [facility] Lin Harris V18.19 Family HX Other Vinnie Mueller Endocrine And Metabolic Diseases 493.10 Asthma Intrinsic Unspecified 995.3 Allergy Unspec V65.49 Counseling Other Spec 448.1 Nevus Non-Neoplastic 309.0 Adjustment Disorder With Depression Plan of Treatment 05/27/2018 - Tere Morillo M.D.R07.89 Other chest painComments:ekg done. Sinus rythm, with ST depressions all V leads.Given symptoms, abnormal EKG, ++ strong family hx CAD, increased weight this year, and elevated bp at this appointment, will refer to Cardiology for further testing. Lipid profile last year excellent. take a 15 minute break in the morning andafternoon for relaxation time every day. If you have more chest pain, go to the ER. Take the copy ofyour EKG done today with you. keep it in your purse. You could take a lo dose aspirin if you go to the ER.Follow up:cpe due in June. f asting labs 2 weeks prior to physical.Z00.00 Encounter for general adult medical examination without abnormal findingsNew Labs:CBC Electronic (Fma), Ordered: 05/27/18CCC- Comp+Lipid (Fma), Ordered: 05/27/18TSH (Fma/CMC/[facility]), Ordered: E55.9 Vitamin D deficiency, unspecifiedNew Labs:Vitamin D, 25Hydroxy(Fma/LC, Ordered: 05/27/18AllComments:Medication Management Patient Understands medications she's taking? Yes No Are there Barriers to Adherence? Yes No Has the patient been asked about herbal supplements and therapies, and OTC meds? Yes No
[2018-06-17 09:13] LABS: ABS Basophils 0 10^3/ul (0-0.2); ABS Eosinophils 0.6 10^3/ul (0-0.6); ABS Lymphocytes 1.7 10^3/ul (1.0-4.8); ABS Monocytes 0.4 10^3/ul (0-0.8); ABS Neutrophils 6.3 10^3/ul (1.5-7.7); ABS Nucleated RBC 0 10^3/ul; Eosinophil % 7.1 %; Hematocrit 42 % (33-41); Hemoglobin 14.1 g/dL (12.0-16.0); Lymphocyte % 18.5 %; Mean Corpuscular HGB Conc 34 g/dL (31-36); Mean Corpuscular Hemoglobin 29 pg (27-31); Mean Corpuscular Volume 86 fL (80-97); Mean Platelet Volume 7.1 fL (7.4-10.4); Nucleated Red Blood Cells % 0; Platelet Count 408 10^3/uL (150-450); Red Blood Count 4.87 10^6 /uL (3.70-4.87); Red Cell Distribution Width 14 % (10.5-15); White Blood Count 9.2 10^3/uL (3.5-10.8)
[2018-06-17 09:30] LABS: Albumin 4.1 g/dL (3.2-5.2); Albumin/Globulin Ratio 1.6 (1-3); BUN/Creatinine Ratio 14.8 (8-20); Calcium 9.3 mg/dL (8.6-10.3); EGFR African American 82.3 (>60); Globulin 2.6 g/dL (2-4); Total Bilirubin 0.4 mg/dL (0.2-1.0); Total Protein 6.7 g/dL (6.4-8.9)
[2018-06-17 09:33] LABS: Activated Partial Thrombo Time 28.6 seconds (26.0-36.3); INR 1.1 (0.82-1.09)
--- NOTE | 2018-06-17 12:55 | CONS ---
CC: Dr. Morillo, [facility]* CARDIOLOGY CONSULTATION: DATE OF CONSULT: 06/17/18 INDICATION FOR CONSULT: Chest pain. HISTORY OF PRESENT ILLNESS: The patient is a 48-year-old female with a history of anxiety and asthma, who has been having episodes of chest discomfort. The patient describes them as chest heaviness. They occur intermittently and they last anywhere from 5 to 10 minutes. They are not associated with exertion. They are not associated with time or day. They are not associated with meals. They have been random in their presentation. The patient did see her primary care physician and was actually scheduled for a consultation with me in my office tomorrow. The patient was at home this morning and she started having a panic attack. She felt short of breath and agitated. When her anxiety started to resolve, she started noticing the chest pain and decided to come to the emergency room. She described the chest pain as a heaviness. It did not radiate to her jaw or her shoulder. She rated it as a 3/10. On arriving to the emergency room, the patient's EKG was in normal sinus rhythm with normal axis and intervals and no evidence of ischemia. The patient's troponin level was 0. PAST MEDICAL HISTORY: Asthma and anxiety disorder. PAST SURGICAL HISTORY: None. OUTPATIENT MEDICATIONS: Fluoxetine 10 mg a day. DRUG ALLERGIES: None. FAMILY HISTORY: The patient's father had his first myocardial infarction at the age of 51 with coronary bypass surgery at 54. SOCIAL HISTORY: The patient is . She denies tobacco use, although grew up in a household of tobacco users. 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 She denies regular alcohol use. PHYSICAL EXAM: Height is 5 feet 6 inches, weight is 165 pounds. Temperature is afebrile, heart rate 73, blood pressure 129/86, respiratory rate is 14, oxygen saturation 98% on room air. Sclerae anicteric. Oropharynx is pink without any erythema. Carotids are 2+ without bruits. JVD is normal. Thyroid is normal. Cardiac Exam: S1, S2 without any murmurs, rubs, or gallops. Lungs are clear to auscultation bilaterally. There is no dullness to percussion. Abdomen is soft, nontender, nondistended with normoactive bowel sounds. Extremities show no edema. She has 2+ pulses throughout. The patient is awake, alert, and oriented. She moves all 4 extremities equally. DIAGNOSTIC STUDIES/LAB DATA: CBC within normal limits. Chemistries are within normal limits. AST and ALT are normal. BMP is normal. Troponin is 0.00. EKG shows normal sinus rhythm with normal axis and intervals. IMPRESSION: This is a 48-year-old female who has been having recurrent episodes of chest discomfort. They are not associated with meals. They are not associated with activity. The patient came to the emergency room this morning with similar discomfort. Again, her troponin levels were unremarkable and her EKG is normal. The patient will undergo a stress echocardiogram for further evaluation. At this point, I do not have cholesterol levels. [id number]/[facility] #: [id number] MARIBELL
[2018-06-17 13:59] VITALS: BP 130/74
== END 2018-06-17 14:02 | disposition home or self-care (01) ==
LOC: ED 08:33
DX: R07.89 Other chest pain (principal); J45.909 Unspecified asthma, uncomplicated; F41.9 Anxiety disorder, unspecified
CPT/HCPCS: 36415; 71045; 80053; 83605; 83880; 84484; 85025; 85610; 85730; 93005; 93351; 99284; A9270-GY